=== PATIENT | female | born 1970 | race Hispanic/Latino ===

== ENCOUNTER → 2022-07-03 | Day surgery (SDC) | payer BC, OTHER ==
[~2022-07-03] MED LIST: CLONAZEPAM0.5 MG PO; HYOSCYAMINE SULFATE 0.5 MG/ML INJ ONE; LURASIDONE HCL60 MG PO; MULTIVITAMINS1 EAC8; PROBIOTIC & AC1 EACH PO; PROPOFOL IV EMULSION 10 MG/ML 20 ML VIAL ONE; SERTRALINE HCL100 MG PO; [UNRECOGNIZED DRUG - OTHER] PO
[2022-07-03 14:09] VITALS: TEMP 97
[2022-07-03 14:55] VITALS: BP 114/80; PULSE 74; RESP 16; O2SAT 97
== END | disposition home or self-care (01) ==
LOC: OR 11:42
PROVIDERS: ATTEND Internal Medicine Gastroenterology
DX: K59.09 Other constipation (principal); K64.8 Other hemorrhoids; K62.89 Other specified diseases of anus and rectum; K62.5 Hemorrhage of anus and rectum; Z71.3 Dietary counseling and surveillance; E78.5 Hyperlipidemia, unspecified; F41.9 Anxiety disorder, unspecified; F31.9 Bipolar disorder, unspecified; Z01.810 Encounter for preprocedural cardiovascular examination; Z79.899 Other long term (current) drug therapy; Z68.26 Body mass index [BMI] 26.0-26.9, adult; Z86.16 Personal history of COVID-19; Z80.0 Family history of malignant neoplasm of digestive organs
CPT/HCPCS: 45378; 81025; 93005; J1980; J2704